=== PATIENT | male | born 1970 | race Caucasian/White ===

== ENCOUNTER 2016-12-23 14:49 | Emergency (ER) | payer SELFPAY ==
[~2016-12-23] VITALS: Ht 5954.8 cm; Wt 92.4 kg
[2016-12-23] MEDS ORDERED: diazepam 5mg tablet PO ONE (15:35)
[2016-12-23] MEDS ORDERED: ketorolac trometh inj. 60 MG/2 ML VIAL IM ONE (15:35)
[2016-12-23] MEDS ORDERED: HYDROmorphone 1 mg/ml syringe IM ONE (15:35)
[2016-12-23] MEDS ORDERED: HYDROmorphone inj. 0.5 MG/0.5 ML DISP.SYRIN ONE (15:48)
[2016-12-23] MEDS ORDERED: HYDR-3965 PO (16:21)
[2016-12-23] MEDS ORDERED: IBUP-1986 PO (16:21)
[2016-12-23] MEDS ORDERED: DIAZ5TAB PO ×2 (16:22→16:23)
[2016-12-23] MEDS ORDERED: ondansetron/PF 4mg/2ml inj IV ONE (16:35)
[2016-12-23] MEDS ORDERED: ONDA4TAB12 PO (16:45)
[2016-12-23 16:55] VITALS: BP 143/99
== END 2016-12-23 16:57 | disposition home or self-care (01) ==
LOC: ER 14:50
DX: S43.101A Unspecified dislocation of right acromioclavicular joint, initial encounter (principal); S40.011A Contusion of right shoulder, initial encounter; V29.9XXA Motorcycle rider (driver) (passenger) injured in unspecified traffic accident, initial encounter; Y93.I9 Activity, other involving external motion; Y92.89 Other specified places as the place of occurrence of the external cause; Y99.8 Other external cause status; Z88.2 Allergy status to sulfonamides; Z88.0 Allergy status to penicillin; Z79.899 Other long term (current) drug therapy
CPT/HCPCS: 72040; 73030; 96372; 96374; 99284; A4565; J1170; J1885; J2405